=== PATIENT | female | born 1985 | race Caucasian/White ===

== ENCOUNTER 2016-08-21 12:13 | Day surgery (SDC) | payer OTHER ==
[~2016-08-21 12:13] MED LIST: BACITRACIN 50,000 UNITS/10 ML SYR IRR ONE; BUPIVACAINE 0.5% 30 ML SDV ONE; CHLORHEXIDINE GLUC HIBICLENS 118 ML BTL TP ONE; LIDOCAINE 1% 30 ML SDV ONE; ROPIVACAINE HCL 20 MG/10 ML INJ EP ONE; ceFAZolin 2 GM/DEXTROSE 100 ML IV ONE
[2016-08-21] MEDS ORDERED: CEFAZOLIN 2 GM/DEXTROSE/100 ML BAG IV ONE (12:26)
[2016-08-21] MEDS ORDERED: LIDOCAINE 1% 5 ML SDV ONE (12:26)
[2016-08-21] MEDS ORDERED: LR 1,000 ML IV ONE (12:30)
[2016-08-21] MEDS ORDERED: LIDOCAINE 1% 5 ML SDV ID PRN (12:30)
[2016-08-21] MEDS ORDERED: MIDAZOLAM 2 MG/2 ML VIAL ONE (13:45)
[2016-08-21] MEDS ORDERED: fentaNYL 100 MCG/2 ML INJ ONE (13:58)
[2016-08-21] MEDS ORDERED: PROPOFOL/EMULSION 500 MG/50 ML BOTTLE IV ONE ×2 (13:58→14:27)
[2016-08-21] MEDS ORDERED: epHEDrine SULFATE 10 MG/ML SYR ONE (14:34)
--- NOTE | 2016-08-21 20:29 | GOP ---
DATE OF OPERATION: 08/21/2016 SURGEON: Crystal Garrett DPM ANESTHESIOLOGIST: Doyle Wright M.D. 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 PROCEDURE PERFORMED: Excision of bone tumor, growth, from the distal phalanx, 3rd digit, left foot, excision of verruca, 2 from the plantar aspect of the left foot. FINDINGS: INDICATIONS: The patient presented to the hospital approximately an hour and a half prior to foot surgery after having been n.p.o. past midnight. The patient' s preoperative history and physical was reviewed, and there were no contraindications to the proposed procedures. DESCRIPTION OF PROCEDURE: The patient was taken to the OR room and placed on the OR table in a supine position where the appropriate anesthetic agents were administered. This was supplemented with local blocks to the left foot utilizing a total of 6 cc of 0.2% Naropin with 6 cc of 1% lidocaine plain. The blocks were given proximal to the base of the 3rd digit, left foot and locally to the plantar skin lesions; 1 plantar aspect of 1st metatarsal head region and the other plantar aspect of the heel. The left lower extremity was then prepped and draped in the usual aseptic fashion covered with a sterile stockinette. A sterile pneumatic ankle tourniquet was applied, and padded well underneath with Webril. Utilizing elevation overlying Esmarch bandage, the left foot was exsanguinated and the tourniquet was inflated to a pressure of 220 mmHg. The foot was lowered to the orthopedic table. Attention was then directed to the dorsal aspect of the 3rd digit, where a partial nail avulsion procedure was performed, removing the medial 1/3 aspect of the nail plate in preparation for the skin incision to excise the bone growth. There was thinning of skin overlying the prominent bone to the distal medial aspect of the distal phalanx. First, an attempt was made to salvage the thin skin; however, decision was made to perform 2 converging semi-ellipticals, excising the cap of skin overlying bone growth. When the skin was excised, a portion of the bone attached to the skin wedge avulsed off. The incision was then deepened through the subcutaneous tissues to the level of the distal phalanx to the region of the bone growth. The subcutaneous tissues were then reflected off the bone growth for exposure. The bone growth was then resected utilizing the sagittal saw, extending from the level of the distal interphalangeal joint distally. The bone was placed on the back table and sent for pathologic evaluation. The bone growth was soft and somewhat crumbly. The remaining distal phalanx appeared normal, and the distal interphalangeal joint also appeared normal with normal articular surface of the head of the middle phalanx. A curette was then utilized to the distal phalanx to remove any remaining soft or loose bone. A C-arm was checked to evaluate the resection performed, which was optimal. The surgical site was copiously irrigated with a sterile saline bacitracin solution. The extensor tendon was left intact. The skin was reapproximated with 4-0 Prolene utilizing interrupted horizontal mattress sutures. Attention was then directed to the plantar aspect of the left foot, where the 2 identified hyperkeratotic lesions with pinpoint papillae were excised utilizing a 64 blade and a curette. The 1 lesion to the plantar aspect of the 1st metatarsal head had some hemorrhagic tissue. The lesion plantar aspect of the left heel had papillae, but a more white discoloration and oval in size. Both lesions measured approximately 5-6 mm in circumference. The skin edges to the verruca were beveled utilizing a 15 blade, and the base of the lesions were cauterized. The sites were copiously irrigated with a sterile saline bacitracin solution. The tourniquet was released, and there was hemostasis with exception to some bleeding to the area of the wart excision, plantar 1st metatarsal head. Gelfoam was applied to this area and cortisone cream with Polysporin was placed to the lesion plantar aspect of the heel. Both lesions were then covered with Xeroform. The left hallux nail was also barely attached to the nail bed and hanging by 2-3 mm to the lateral proximal nail fold. The left hallux nail was completely avulsed and placed on the back table. The Cortisporin Polysporin cream was also applied to this area and covered with a sterile Band-Aid. The patient requested just prior to going into surgery that the left hallux nail plate be completely removed since she was going to surgery to the foot. The patient was informed that that can be performed without complications. A sterile dressing was completed. Again, Xeroform was applied to the surgical sites. First the 3rd digit, followed by the 2 plantar skin lesions, 4 x 4 gauze, Chas, and then a Kerlix. The patient tolerated the procedures and anesthesia well, was transferred to the recovery room with vital signs stable and vascular status intact to the left lower extremity. In the recovery room, the patient received postoperative oral and written home care instructions. The patient was dispensed a cryo cuff and instructed on its usage. Patient was given prescription for Percocet to take postoperatively as prescribed for pain. The patient is permitted to bear weight on the left foot; however, is to utilize the Darco shoe at all times when weightbearing for protection. She is scheduled for her 1st postoperative visit in 2 days. Please call the office earlier if any questions or problems should arise. /[id number]/MODL MTDD
== END 2016-08-21 16:50 | disposition home or self-care (01) ==
LOC: FSGY 12:13
PROVIDERS: ATTEND Podiatrist
PROC: 0QBR0ZZ Excision of Left Toe Phalanx, Open Approach (ICD-10-PCS; principal; 2016-08-21 13:30)
PROC: 0HBNXZZ Excision of Left Foot Skin, External Approach (ICD-10-PCS; 2016-08-21 13:30)
PROC: 0HTRXZZ Resection of Toe Nail, External Approach (ICD-10-PCS; 2016-08-21 13:30)
DX: D49.2 Neoplasm of unspecified behavior of bone, soft tissue, and skin (principal); B07.0 Plantar wart; M79.675 Pain in left toe(s)
CPT/HCPCS: J0690; J2250; J2704; J2795; J3010

== ENCOUNTER 2017-08-27 07:30 | Inpatient (IN) | payer OTHER ==
[2017-08-28] MEDS ORDERED: MISOPROSTOL 200 MCG TAB PR PRN (21:24)
[2017-08-28] MEDS ORDERED: OXYTOCIN 20 UNIT in LR 1,000 ML IV PRN (21:24)
[2017-08-28] MEDS ORDERED: LR 1,000 ML IV PRN (21:24)
[2017-08-28] MEDS ORDERED: AMPICILLIN SODIUM 2 GM in STERILE WATER INJ 25 ML IV ONE (21:24)
[2017-08-28] MEDS ORDERED: EPSOM SALT 454 GM TP PRN (21:24)
[2017-08-28] MEDS ORDERED: TERBUTALINE SULFATE 1 MG/ML VIAL IV PRN (21:24)
[2017-08-28] MEDS ORDERED: OLIVE OIL 118 ML BTL MISC PRN (21:24)
[2017-08-28] MEDS ORDERED: LIDOCAINE 1% 300 MG/30 ML SDV ONE (21:29)
[2017-08-28] MEDS ORDERED: OXYTOCIN 10 UNIT/ML VIAL ONE (21:30)
[2017-08-28] MEDS ORDERED: TERBUTALINE SULFATE 1 MG/ML VIAL ONE (21:30)
[2017-08-28] MEDS ORDERED: AMMONIA AROMATIC 1 EACH AMP IH ONE (21:30)
[2017-08-28] MEDS ORDERED: MISOPROSTOL 200 MCG TAB ONE (21:30)
[2017-08-28] MEDS ORDERED: OLIVE OIL 118 ML BTL ONE (21:30)
[2017-08-28 21:46] LABS: PLATELET COUNT 164 10^3/uL (150-400)
[2017-08-29] MEDS ORDERED: METHYLERGONOVINE MAL 0.2 MG/ML INJ ONE (00:17)
[2017-08-29] MEDS ORDERED: METHYLERGONOVINE MAL 0.2 MG/ML INJ IM ONE (00:20)
[2017-08-29] MEDS ORDERED: ACETAMINOPHEN 325 MG TAB PO PRN (00:59)
[2017-08-29] MEDS ORDERED: HYDROCODONE/APAP 5/325 TAB PO PRN (00:59)
[2017-08-29] MEDS: IBUPROFEN 600 MG TAB PO PRN ×4 (01:02→20:18)
--- NOTE | 2017-08-29 01:08 | OBDEL ---
Info Type: Vaginal Presentation at Delivery: Vertex L&D Analgesia/Anesthesia Type: Local (1%) GBS+: Yes Antibiotic Used for + GBS: Ampicillin (x1 dose) Intrapartum Medications: Discontinued Medications Generic Name Dose Route Start Last Admin Trade Name Freq PRN Reason Stop Dose Admin Ampicillin Sodium 2 gm/ 25 mls @ 100 mls/hr 08/28/17 21:24 08/28/17 21:45 Sterile Water IV 08/28/17 21:38 25 mls ONCE ONE Administration Protocol Oxytocin 20 unit/ Lactated 1,002 mls @ 150 mls/hr 08/28/17 21:24 08/29/17 00: 15 Ringer's IV 1,002 mls PRN PRN Administration Post- bleeding - Infant Care Provider General Service Officer/CUT OFF WORKER: Sonja Saini - Hospital Course Intrapartum: 08/29/17 01:03 SOOC 6 pm, arrived at 9 cm. rapid change to complete and then effective pushing. Indications for Delivery: Spontaneous Labor Vaginal Delivery - Delivery Provider Delivery Physician/CNM: Annette Otto - Labor and Delivery Onset of Contractions Date: 08/28/17 Onset of Contractions Time: 18:10 Onset of Contractions Type: Spontaneous Rupture of Membranes Date: 08/28/17 Rupture of Membranes Time: 23:13 Rupture of Membranes Type: Spontaneous Amniotic Fluid Color: Clear Dilation Complete Date: 08/28/17 Dilation Complete Time: 22:48 Placenta Delivery Date: 08/29/17 Placenta Delivery Time: 00:00 Total Hours of Labor: 5 Laceration: 2nd Degree Repair: 2-0, 3-0, Vicryl Vaginal Sponge Count Correct: Yes Vaginal Needle Count Correct: Yes Vaginal Sweep Performed: Yes EBL: 500 Delivery Events: Nuchal Cord (tight x1 NC, then cord wrapped around arms and legs) [place] Data LAN: 08/24/17 Gestational Age: 40 week(s) and 5 day(s) Castaneda Delivery Date: 08/28/17 Delivery Time: 23:53 Sex of : Male Score (1 Min): 8 Score (5 Min): 9 ICD10 Worksheet Patient Problems: Problems Problem Status Onset (spontaneous vaginal delivery) Acute
[2017-08-29] MEDS ORDERED: ONDANSETRON 4 MG/2 ML VIAL IVP PRN (01:14)
--- NOTE | 2017-08-29 07:26 | GHP ---
[f rep st] PREOP HISTORY AND PHYSICAL DATE OF ADMISSION: 08/28/2017 This was dictated late. The patient was seen and evaluated at approximately 10: 30 p.m. on 08/28/2017. HISTORY: Upon admission, the patient is a 31-year-old, G1, P0, at 40+ weeks' gestation with an estimated due date of 08/24/2017. The patient reports low abdominal cramping through the day. However, real definable contractions that were strong approximately 6 p.m. Patient had bag of water intact and good movement. No bleeding. Patient came in active labor, and initial cervical exam revealed the patient was 9 cm dilated. The patient does have a history of GBS positive, and IV was started immediately, and the patient received her 1st dose of antibiotics. CARE: The patient has been followed with [facility] since 1st trimester . The patient has had an uncomplicated . LABORATORIES: The patient's blood type is O positive with negative antibody screen. RPR is nonreactive. Hepatitis B surface antigen is negative. HIV negative. Rubella is immune. Gonorrhea and chlamydia are negative. Patient had a 1-hour Glucola that was normal. GBS culture was positive. Mild anemia PAST MEDICAL AND SURGICAL HISTORY: Mid-cycle migraines, mild childhood asthma, minor surgery on left foot, odontectomy in hs ALLERGIES: The patient has no known drug allergies. CURRENT MEDICATIONS: Only vitamins and iron SOCIAL HISTORY: The patient is and is here with her supportive . Patient is a nonsmoker. No alcohol or drug use. PHYSICAL EXAMINATION: VITAL SIGNS: Upon admission, the patient is afebrile with normal vital signs. See nursing documentation for full details. HEART TONES: Category 1 with a low baseline in the 120s with good variability and accelerations. No decelerations noted. CERVICAL: Again, upon admission, was 9 cm dilated, 100% effaced at 0 station. Bag of water was intact and bulging. EXTREMITIES: Nontender with no edema. ASSESSMENT: Intrauterine at 40+ weeks' gestation. Active labor. Group B streptococcus positive, and received 1st dose of antibiotics. PLAN: Patient desiring natural labor, and got in the tub for labor comfort. /[id number]/MODL MTDD
[2017-08-29] MEDS: DOCUSATE SODIUM 100 MG CAP PO PRN ×2 (07:56→20:18)
--- NOTE | 2017-08-29 14:06 | OBPP ---
Progress Note Assessment/Plan: Assessment: [id number] s/p PPD#1 GBS+ untreated Plan: Routine PP care cont , work with ambulate/hydrate plan d/c home @48hr 08/29/17 14:03 Subjective/ Course: 08/29/17 14:05 Pt doing well, denies any pain or heavy bleeding. she is . she has slept today. she is voiding and ambulating without difficulty. FOB @ BS, supportive Objective: 08/29/17 06:20 Patient ABO/Rh O POSITIVE 08/28/17 21:35 Temp Pulse Resp BP Pulse Ox 36.6 C 64 17 98/58 L 92 08/29/17 08:00 08/29/17 08:00 08/29/17 08:00 08/29/17 08:00 08/29/17 08:00 Uterine Position/Fundal Height: Umbilicus -1, Midline Uterine Tone: Firm Physical Exam - Physical Exam EENT: PERRL/EOMI Neck: supple Abdomen: non-tender, soft Skin: normal color, warm/dry Neuro/Psych: no motor/sensory deficits, alert, normal mood/affect, oriented x 3
[2017-08-30] MEDS: IBUPROFEN 600 MG TAB PO PRN ×4 (02:32→21:49)
--- NOTE | 2017-08-30 15:47 | OBPP ---
Progress Note Assessment/Plan: Assessment: 31 y/o PPD #2 s/p doing well Plan: Routine PPC. D/c home in am. 08/30/17 15:48 Subjective/ Course: 08/29/17 14:05 Pt doing well, denies any pain or heavy bleeding. she is . she has slept today. she is voiding and ambulating without difficulty. FOB @ BS, supportive 08/30/17 15:44 Pt is doing well. She has min cramping controlled with Ibuprofen. She is ambulating, voiding without difficulty and has min lochia. Breast feeding is going well and baby is doing well. Objective: 08/29/17 06:20 Patient ABO/Rh O POSITIVE 08/28/17 21:35 Temp Pulse Resp BP Pulse Ox 36.7 C 81 16 103/64 95 08/30/17 08:10 08/30/17 08:10 08/30/17 08:10 08/30/17 08:10 08/29/17 23:45 Uterine Position/Fundal Height: Umbilicus -2 Uterine Tone: Firm Physical Exam - Physical Exam General Appearance: alert, no apparent distress Neck: non-tender, full range of motion, supple Respiratory: chest non-tender, lungs clear, normal breath sounds Cardiac/Chest: regular rate, rhythm Abdomen: normal bowel sounds Extremities: swelling (no), Barry's sign (neg)
[2017-08-31] MEDS: IBUPROFEN 600 MG TAB PO PRN ×2 (05:51→12:13)
[2017-08-31] MEDS ORDERED: IRON POLYSAC/IRON HEME 28 MG TAB PO SCH (09:00)
[2017-08-31 09:07] VITALS: BP 94/58; PULSE 58; RESP 17; TEMP 98; O2SAT 97
--- NOTE | 2017-08-31 10:22 | OBPP ---
Progress Note Assessment/Plan: Assessment: 1) s/p PPD # 3 - pt is stable 2) Anemia - pt is asymptomatic Plan: Plan for d/c home today Instructions reviewed with pt No Rx given Cont PNV, iron and colace Pelvic rest RTC in 4 and 6 weeks 08/31/17 10:19 Subjective/ Course: 08/29/17 14:05 Pt doing well, denies any pain or heavy bleeding. she is . she has slept today. she is voiding and ambulating without difficulty. FOB @ BS, supportive 08/30/17 15:44 Pt is doing well. She has min cramping controlled with Ibuprofen. She is ambulating, voiding without difficulty and has min lochia. Breast feeding is going well and baby is doing well. 08/31/17 10:21 Pt seen and examined. Doing well with no complaints. Mild cramping, controlled with Motrin. She is OOB, eddy regular diet, voiding and passing flatus. BM x1. BF without difficulty. Objective: 08/29/17 06:20 Patient ABO/Rh O POSITIVE 08/28/17 21:35 Temp Pulse Resp BP Pulse Ox 36.7 C 58 L 17 94/58 L 97 08/31/17 08:00 08/31/17 08:00 08/31/17 08:00 08/31/17 08:00 08/31/17 08:00 Uterine Position/Fundal Height: Umbilicus -2 Uterine Tone: Firm Physical Exam - Physical Exam Respiratory: lungs clear, normal breath sounds Cardiac/Chest: regular rate, rhythm Abdomen: normal bowel sounds, non-tender, soft, flatus (+) Extremities: non-tender, normal inspection Skin: normal color, warm/dry Neuro/Psych: alert, normal mood/affect, oriented x 3
--- NOTE | 2017-08-31 10:22 | OBGCSDC ---
General Delivery Information - General Info : 1 Para: 1 Abortions: 0 Type: Vaginal L&D Analgesia/Anesthesia Type: Local Admission Date: 08/28/17 Labs: Patient ABO/Rh O POSITIVE 08/28/17 21:35 Hct 35.1 % (38.0-47.0) L 08/29/17 06:20 - Hospital Course Intrapartum: 08/29/17 01:03 SOOC 6 pm, arrived at 9 cm. rapid change to complete and then effective pushing. : 08/29/17 14:05 Pt doing well, denies any pain or heavy bleeding. she is . she has slept today. she is voiding and ambulating without difficulty. FOB @ BS, supportive 08/30/17 15:44 Pt is doing well. She has min cramping controlled with Ibuprofen. She is ambulating, voiding without difficulty and has min lochia. Breast feeding is going well and baby is doing well. 08/31/17 10:21 Pt seen and examined. Doing well with no complaints. Mild cramping, controlled with Motrin. She is OOB, eddy regular diet, voiding and passing flatus. BM x1. BF without difficulty. Vaginal - Delivery Provider Delivery Physician/CNM: Annette Otto - Diagnosis Labor: Spontaneous Rupture of Membranes Type: Spontaneous Amniotic Fluid Color: Clear Laceration: 2nd Degree Repair: 2-0, 3-0, Vicryl Delivery Events: Nuchal Cord (tight x1 NC, then cord wrapped around arms and legs) - Delivery EBL: 500 [place] Data LAN: 08/24/17 Gestational Age: 41 week(s) and 0 day(s) Castaneda Delivery Date: 08/28/17 Delivery Time: 23:53 Sex of Infant: Male Score (1 Min): 8 Score (5 Min): 9 Discharge Information - Discharge Information Condition: Good Instruction/Follow Up: Four Weeks, Six Weeks
[2017-08-31] MEDS: DOCUSATE SODIUM 100 MG CAP PO PRN (12:13)
== END 2017-08-31 12:40 | disposition home or self-care (01) | DRG 775 ==
LOC: FLD 08-28 21:05 → FOB 08-29 02:33
PROVIDERS: ADMIT Obstetrics & Gynecology; ATTEND Obstetrics & Gynecology
PROC: 10E0XZZ Delivery of Products of Conception, External Approach (ICD-10-PCS; principal; 2017-08-28)
PROC: 0KQM0ZZ Repair Perineum Muscle, Open Approach (ICD-10-PCS; principal; 2017-08-28)
DX: O70.1 Second degree perineal laceration during delivery (principal); O69.1XX0 Labor and delivery complicated by cord around neck, with compression, not applicable or unspecified; O69.82X0 Labor and delivery complicated by other cord entanglement, without compression, not applicable or unspecified; O99.820 Streptococcus B carrier state complicating pregnancy; O99.013 Anemia complicating pregnancy, third trimester; Z3A.40 40 weeks gestation of pregnancy; Z37.0 Single live birth
CPT/HCPCS: J0290; J2210; J2405; J2590; J3105